=== PATIENT | female | born 1995 | race Caucasian/White ===

== ENCOUNTER 2020-03-16 11:06 | Emergency (ER) | payer OTHER ==
[~2020-03-16] VITALS: Ht 172.7 cm; Wt 83.0 kg
[2020-03-16] MEDS ORDERED: LUTERA1 EACH PO (11:21)
== END 2020-03-16 13:14 | disposition home or self-care (01) ==
LOC: ED 11:06
DX: K59.00 Constipation, unspecified (principal); Z88.1 Allergy status to other antibiotic agents; Z79.899 Other long term (current) drug therapy
CPT/HCPCS: 74018; 76770; 80053; 81001; 84703; 85025; 99284-25